=== PATIENT | female | born 1950 | race Caucasian/White ===

== ENCOUNTER → 2016-07-23 | Outpatient (CLI) | payer OTHER ==
[~2016-07-23] MED LIST: AMLO-110 PO; BUPRTAB PO; DTR5 PO; FURO-85 PO; LOSA1TAB38 PO; METF-384 PO; POTA10CA28 PO; SITA100T3 PO; SULI200T4 PO; VENL150C PO
[2016-07-24 06:22] LABS: ESTIMATED AVERAGE GLUCOSE 203 mg/dl; HA1C FLAG Normal (Normal)
== END | disposition home or self-care (01) ==
LOC: C.LAB1850 16:22
PROVIDERS: ATTEND Nurse Practitioner Family
DX: E11.49 Type 2 diabetes mellitus with other diabetic neurological complication (principal)

== ENCOUNTER 2017-05-29 19:51 | Emergency (ER) | payer OTHER ==
[~2017-05-29] VITALS: Ht 172.7 cm; Wt 138.4 kg
[2017-05-29 19:53] VITALS: TEMP 36.7; Ht 172.7 cm; Wt 138.4 kg
[2017-05-29] MEDS ORDERED: KETOROLAC TROMETHAMINE 30 MG/ML VIAL IV STA (20:09)
--- NOTE | 2017-05-29 20:11 | EMERGENCY ROOM VISIT NOTE ---
History Report prepared by Evangelista: Maegan Barnard Under the Supervision of: Dr. Vignesh Subramanian M.D. First contact with patient: 19:58 Chief Complaint: RIB PAIN Stated Complaint: FELL, HURT RIBS AND CAN'T BREATH WELL History of Present Illness The patient is a 66 year old female who presents to the Emergency Room with complaints of an episode of a fall occurring three hours ago. The patient states she fell on her right side and hit her head. She reports her right sided ribs hurt when she takes a deep breath. She notes a headache, right arm pain, and right knee pain but denies any neck, jaw, or abdominal pain. She states her headache is mild and she does not want a CT of her head. 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 She states sometimes her left leg gives out which is what happened today when she fell. The patient has hypertension and takes an aspirin daily. The patient has a history of a cholecystectomy. Source of History: patient Onset: 3 hours ago Position: other (global ) Quality: other (fall) Timing: other (episode) Modifying Factors (Worsening): other (rib pain worsens with breathing) Associated Symptoms: + headache, No neck pain, No abdominal pain, No back pain Review of Systems See HPI for pertinent positives & negatives. A total of 10 systems reviewed and were otherwise negative. Past Medical & Surgical Medical Problems: (1) Diabetes (2) HTN (hypertension) Surgical Problems: (1) H/O left knee surgery (2) H/O right knee surgery Old medical records were reviewed. Nurse's notes were reviewed and I agree with. Family History Cancer FH: HTN (hypertension) FH: diabetes mellitus Heart disease Social History Smoking Status: Never Smoker Alcohol Use: none Drug Use: none Marital Status: Housing Status: lives with significant other Occupation Status: retired Current/Historical Medications Scheduled Amlodipine (Norvasc), 5 MG PO DAILY Atorvastatin (Lipitor), 10 MG PO DAILY Bupropion Hcl (Wellbutrin Xl), 150 MG PO BID Cholecalciferol (Vitamin D 1000 Unit), 1,000 INTER.UNIT PO DAILY Epinephrine (Epipen), 0.3 MG IM UD Gabapentin (Gabapentin), 300 MG PO TID Hydrochlorothiazide (Hydrochlorothiazide), 25 MG PO DAILY Insulin Glargine (Toujeo Solostar), 24 UNITS SQ DAILY Metformin Hcl (Glucophage), 1,000 MG PO BID Mometasone Furoate-Formoterol (Dulera 100/5 Mcg), 2 PUFF INH BID Potassium Chloride (Micro-K Ext Rel), 10 MEQ PO BID Sulindac (Sulindac), 200 MG PO BID Venlafaxine Hcl (Effexor Xr), 1 CAP PO DAILY Scheduled PRN Furosemide (Lasix), 20 MG PO DAILY PRN for EDEMA Oxycodone Immediate Rel Tab (Roxicodone Ir), 1-2 TAB PO Q4H PRN for Severe Pain Allergies Coded Allergies: No Known Allergies (Verified , 08/30/13) NKDA Physical Exam Vital Signs Date Time Temp Pulse Resp B/P (MAP) Pulse Ox O2 Delivery O2 Flow Rate FiO2 05/29/17 22:24 05/29/17 22:22 70 20 185/91 95 Room Air 05/29/17 22:22 63 13 96 05/29/17 22:07 60 20 97 05/29/17 22:02 181/83 05/29/17 21:52 62 20 95 05/29/17 21:39 62 05/29/17 21:37 61 18 95 05/29/17 21:32 165/97 05/29/17 21:22 66 18 96 05/29/17 21:07 63 17 95 05/29/17 21:02 165/76 05/29/17 20:56 66 16 95 05/29/17 20:36 61 19 96 05/29/17 20:32 166/78 05/29/17 20:23 169/86 95 Room Air 05/29/17 19:53 36.7 70 24 197/97 96 Room Air Physical Exam General: Non-ill appearing mildly uncomfortable obese middle aged female in no acute distress. HEENT: Normal cephalic atraumatic. Pupils are equal round and reactive to light. Extraocular movements are intact. Oropharynx is pink with moist mucous membranes. No swelling of the mouth lips or tongue. Neck: Supple with a midline trachea. No meningeal signs or stiffness, no JVD or bruits. No Stridor. Chest: Right rib tenderness, no crepitus. Clear to auscultation bilaterally. No wheezes or rhonchi. No increased work of breathing. Heart: regular rate and rhythm. Abdomen: Soft nontender, nondistended without rebound guarding or rigidity. Extremities: No cyanosis clubbing or edema. No calf tenderness or assymetry Spine/Back. Non tender to palpation. No CVA tenderness Skin:Bruise on right lower breast. Good turgor without rashes. Neurologic exam: Cranial nerves two through 12 are intact. Motor and sensation are intact and symmetrical throughout. Medical Decision & Procedures ER Provider Diagnostic Interpretation: Radiology results as stated below per my review and radiologist interpretation: CT OF THE CHEST WITH IV CONTRAST FINDINGS: There is no evidence of traumatic injury to the thoracic aorta. The heart is moderately enlarged. Extensive coronary artery calcification is present. Central airways are patent. An 8 mm perifissural nodule within the right middle lobe is likely benign. There is no pulmonary contusion. No pneumothorax or pleural effusion is present. There is a possible acute nondisplaced fracture of the anterior right sixth rib shown on axial image 166 of 221. The abdomen and pelvis will be reported separately. There is no thoracic lymphadenopathy. There is a 1.3 cm hypodense left lobe thyroid nodule with peripheral calcification. IMPRESSION: 1. Possible acute nondisplaced fracture of the anterior right sixth rib. No pneumothorax. 2. No additional acute traumatic within the chest. Electronically signed by: Basil Watson M.D. CT OF THE ABDOMEN AND PELVIS WITH CONTRAST FINDINGS: No hemoperitoneum or pneumoperitoneum is present. There is no evidence of traumatic injury to the liver, spleen, adrenal glands, kidneys or pancreas. The spleen is mildly enlarged. Note is made of an intermediate attenuation 1.2 cm lesion which arises from the midpole of the right kidney. There is no hydronephrosis. There is no biliary ductal dilatation status post cholecystectomy. Caliber and wall thickness of small and large bowel are normal. Study is compromised by artifact related to body wall contacting the gantry. No acute lumbar spine or pelvic fracture is identified. There is no lymphadenopathy. IMPRESSION: 1. No acute traumatic findings within the abdomen or pelvis. 2. 1.2 cm exophytic lesion arising from the midpole of the right kidney. This measures above water attenuation which may be artifactual on this exam. This could reflect a cyst or solid renal lesion. A nonemergent renal protocol CT is recommended. 3. Mild splenomegaly. Electronically signed by: Basil Watson M.D. Laboratory Results Test 05/29/17 20:23 Bedside Hemoglobin 13.9 g/dl (12.0-16.0) Bedside Hematocrit 41 % (37-47) Bedside Sodium 138 mEq/L (135-144) Bedside Potassium 3.7 mEq/L (3.3-5.0) Bedside Chloride 100 mEq/L (101-112) Bedside Total CO2 25 mEq/l (24-31) Anion Gap 17.0 mmol/L (16-25) Bedside Blood Urea Nitrogen 15 mg/dl (7-18) Bedside Creatinine 0.7 mg/dl (0.6-1.3) Bedside Glucose (other) 113 mg/dl (70-99) Bedside Ionized Calcium (Caden) 1.16 mmol/l (1.12-1.32) Medications Administered Medications (Trade) Dose Ordered Sig/Hodan Route Start Time Stop Time Status Last Admin Dose Admin Ketorolac Tromethamine (Toradol Inj) 30 mg NOW STAT IV 05/29/17 20:09 05/29/17 20:10 DC 05/29/17 20:33 30 MG Acetaminophen (Tylenol Tab) 1,000 mg NOW STAT PO 05/29/17 21:03 05/29/17 21:04 DC 05/29/17 21:21 1,000 MG Oxycodone HCl (Roxicodone Immediate Rel 5MG Home Pack) 1 homepack UD ONCE PO 05/29/17 22:15 05/29/17 22:16 DC 05/29/17 22:26 1 HOMEPACK ED Course 1958: Past medical records reviewed. The patient was evaluated in room C10, and a complete history and physical examination were performed. 2008: Ordered Toradol Inj 30 mg IV. 2015: The patient is getting blood work drawn, she is resting comfortably. 2040: The patient is on her way to CT. 2102: Ordered Tylenol Tab 1000 mg PO. 2124: I updated the patient on her test results, she is resting comfortably and is requesting to go home. 2202: I updated the patient on her CT results, she is ready to go home. 2214: Ordered Oxycodone HCl 1 homepack PO. 2219: Upon reevaluation, the patient is resting comfortably. I discussed the results and treatment plan with her. She verbalized agreement of the treatment plan. The patient was discharged home. Medical Decision Differential diagnoses: Rib contusion, pneumothorax, pulmonary injury, intraabdominal injury, head injury. This patient comes in as described above she suffered mechanical fall has pain in her ribs most in the right lower rib it hurts when she breathes. She appears no distress otherwise. She may have hit her head but has minimal headache. She has no neck pain or facial symptoms at this point. She has no significant orthopedic injuries. I did order CAT scan of her chest and abdomen. she declines a head scan and has normal neurologic exam at this point. I-STAT was obtained . She was given Toradol 30 mg IV as she is driving. CAT scans do show a nondisplaced sixth right sided rib fracture which is consistent with her physical exam. There are no acute intra-abdominal processes. There may be a renal lesion/cyst and I talked the patient length about this that she should follow up with her regular doctor and likely of a CAT scan in the near future to rule out renal pathology. She has no acute electrolyte or metabolic abnormalities. She did receive IV Toradol and also received Tylenol. She is driving. Her pain she can use ibuprofen. For breakthrough pain, She can use OxyIR 5 mg, one or 2 pills every 4-6 hours as needed. She was warned that it could make her drowsy and do not take before drinking, driving, working. She should use an incentive spirometer was given this as well. She should be careful getting up and down she should follow up with her regular doctor Wednesday or Wednesday for recheck or return here over the weekend if increasing pain, fever chills, worsening symptoms, any new problems or concerns. Blood Pressure Screening Patient's blood pressure: Elevated blood pressure Blood pressure disposition: Elevated BP felt to be situational Impression Primary Impression: Right rib fracture Additional Impression: Right-sided chest pain Scribe Attestation The scribe's documentation has been prepared under my direction and personally reviewed by me in its entirety. I confirm that the note above accurately reflects all work, treatment, procedures, and medical decision making performed by me. Departure Information Dispostion Home / Self-Care Prescriptions Oxycodone Immediate Rel Tab (ROXICODONE IR) 5 Mg Tab 1-2 TAB PO Q4H Y for Severe Pain, #24 TAB Prov: Vignesh Subramanian M.D. 05/29/17 Referrals Wm Sidhu M.D. (PCP) Forms HOME CARE DOCUMENTATION FORM, IMPORTANT VISIT INFORMATION, WORK / SCHOOL INSTRUCTIONS Patient Instructions My [facility] Additional Instructions Rest Drink plenty of fluids Use ibuprofen 400 mg every 6 hours, take with food For more severe pain, may use OxyIR 5 mg, one or 2 pills every 4-6 hours as needed OxyIR may make you drowsy and do not take before drinking, driving, working Using incentive spirometer and ensure that you are taking several deep breaths an hour Return if: Increasing pain, shortness of breath, fever or chills, cough, any new problems or concerns Follow-up with your doctor on Wednesday for recheck. You may also potentially have an incidental renal cyst/mass and may need follow-up CAT scan for further evaluation in the near future Problem Qualifiers
[2017-05-29] MEDS ORDERED: ATOR10TA82 PO (20:13)
[2017-05-29] MEDS ORDERED: INSU1.2I SQ (20:13)
[2017-05-29] MEDS ORDERED: CHOL100027 PO (20:13)
[2017-05-29] MEDS ORDERED: CLN200 PO (20:13)
[2017-05-29] MEDS ORDERED: METF-384 PO (20:13)
[2017-05-29] MEDS ORDERED: EPP3/2 IM (20:13)
[2017-05-29] MEDS ORDERED: MOME100A INH (20:13)
[2017-05-29] MEDS ORDERED: HYDR25TA5 PO (20:13)
[2017-05-29] MEDS ORDERED: NVLGI/PEN SQ (20:13)
[2017-05-29] MEDS ORDERED: GABA1CAP4 PO (20:13)
[2017-05-29] MEDS ORDERED: OPTIRAY 320 IV PRN (20:30)
[2017-05-29 20:35] LABS: ISTAT CREATININE 0.7 mg/dl (0.6-1.3); ISTAT HEMOGLOBIN 13.9 g/dl (12.0-16.0); ISTAT IONIZED CALCIUM 1.16 mmol/l (1.12-1.32)
[2017-05-29] MEDS ORDERED: ACETAMINOPHEN 500 MG TAB PO STA (21:03)
--- NOTE | 2017-05-29 21:23 | DIAGNOSTIC IMAGING REPORT ---
CT OF THE CHEST WITH IV CONTRAST CLINICAL HISTORY: Right-sided rib pain following fall. COMPARISON STUDY: Chest radiograph August 23, 2013. TECHNIQUE: Following IV administration of 119 mL of Optiray-320, helical axial images of the chest were obtained. Sagittal and coronal reconstructions were viewed as well as maximal intensity projections on an independent 3-D workstation. A dose lowering technique was utilized adhering to the principles of ALARA. CT DOSE: 3267.72 mGy.cm FINDINGS: There is no evidence of traumatic injury to the thoracic aorta. The heart is moderately enlarged. Extensive coronary artery calcification is present. Central airways are patent. An 8 mm perifissural nodule within the right middle lobe is likely benign. There is no pulmonary contusion. No pneumothorax or pleural effusion is present. There is a possible acute nondisplaced fracture of the anterior right sixth rib shown on axial image 166 of 221. The abdomen and pelvis will be reported separately. There is no thoracic lymphadenopathy. There is a 1.3 cm hypodense left lobe thyroid nodule with peripheral calcification. IMPRESSION: 1. Possible acute nondisplaced fracture of the anterior right sixth rib. No pneumothorax. 2. No additional acute traumatic within the chest. Electronically signed by: Basil Watson M.D. 05/29/2017 9:22 PM Dictated Date/Time: 05/29/2017 9:07 PM
--- NOTE | 2017-05-29 21:30 | DIAGNOSTIC IMAGING REPORT ---
CT OF THE ABDOMEN AND PELVIS WITH CONTRAST CLINICAL HISTORY: Fall. Right-sided chest and abdominal pain. COMPARISON STUDY: None. TECHNIQUE: Following IV administration of 119 mL of Optiray-320, axial images of the abdomen and pelvis were obtained from the lung bases to the proximal femurs. Images were reviewed in the axial, sagittal, and coronal planes. IV contrast was administered without complication. A dose lowering technique was utilized adhering to the principles of ALARA. FINDINGS: No hemoperitoneum or pneumoperitoneum is present. There is no evidence of traumatic injury to the liver, spleen, adrenal glands, kidneys or pancreas. The spleen is mildly enlarged. Note is made of an intermediate attenuation 1.2 cm lesion which arises from the midpole of the right kidney. There is no hydronephrosis. There is no biliary ductal dilatation status post cholecystectomy. Caliber and wall thickness of small and large bowel are normal. Study is compromised by artifact related to body wall contacting the gantry. No acute lumbar spine or pelvic fracture is identified. There is no lymphadenopathy. IMPRESSION: 1. No acute traumatic findings within the abdomen or pelvis. 2. 1.2 cm exophytic lesion arising from the midpole of the right kidney. This measures above water attenuation which may be artifactual on this exam. This could reflect a cyst or solid renal lesion. A nonemergent renal protocol CT is recommended. 3. Mild splenomegaly. Electronically signed by: Basil Watson M.D. 05/29/2017 9:28 PM Dictated Date/Time: 05/29/2017 9:23 PM
[2017-05-29] MEDS ORDERED: OXYC1TAB3 PO (21:59)
[2017-05-29] MEDS ORDERED: OXYCODONE IR HOME PACK PO ONE (22:15)
[2017-05-29 22:22] VITALS: BP 185/91; PULSE 63; O2SAT 96
== END 2017-05-29 22:37 | disposition home or self-care (01) ==
LOC: C.EDB 19:53 → C.EDC 22:37
DX: S22.31XA Fracture of one rib, right side, initial encounter for closed fracture (principal); R51 Headache; M79.601 Pain in right arm; M25.561 Pain in right knee; I10 Essential (primary) hypertension; E11.9 Type 2 diabetes mellitus without complications; G57.92 Unspecified mononeuropathy of left lower limb; Z79.82 Long term (current) use of aspirin; Z79.4 Long term (current) use of insulin; Z79.899 Other long term (current) drug therapy; Z82.49 Family history of ischemic heart disease and other diseases of the circulatory system; Z83.3 Family history of diabetes mellitus; W19.XXXA Unspecified fall, initial encounter

== ENCOUNTER → 2018-02-21 | Outpatient (CLI) | payer OTHER ==
[~2018-02-21] MED LIST changes: -AMLO-110 PO; +AMLO5TAB3 PO; +ATOR10TA82 PO; +CHOL100027 PO; +CLN200 PO; -DTR5 PO; +EPP3/2 IM; +GABA-1219 PO; +HYDR25TA5 PO; +INSU1.2I SQ; -LOSA1TAB38 PO; +MOME100A INH; -SITA100T3 PO; -SULI200T4 PO; -VENL150C PO; +VENL150C2 PO
[2018-02-21 12:52] LABS: HEMOGLOBIN A1C 7.8 % (4.5-5.6)
== END | disposition home or self-care (01) ==
LOC: C.LAB1850 10:29
PROVIDERS: ATTEND Nurse Practitioner Family
DX: E03.9 Hypothyroidism, unspecified (principal)